=== PATIENT | male | born 1985 | race African-American/Black ===

== ENCOUNTER 2021-12-27 13:59 | Emergency (ER) | payer OTHER ==
[2021-12-27 14:11] VITALS: BP 169/101
[2021-12-27 14:22] LABS: BILIRUBIN,URINE NEGATIVE (NEGATIVE); GLUCOSE, URINE (UA) NEGATIVE (NEGATIVE); KETONES,URINE (UA) NEGATIVE (NEGATIVE); LEUKOCYTE ESTERASE, URINE NEGATIVE (NEGATIVE); NITRITE,URINE NEGATIVE (NEGATIVE); OCCULT BLOOD,URINE NEGATIVE (NEGATIVE); PROTEIN,URINE NEGATIVE (NEGATIVE); UROBILINOGEN,URINE 1 (NORMAL) E.U./dL (NORMAL)
--- NOTE | 2021-12-27 14:22 | ED Physician Documentation ---
History of Present Illness - Stated complaint Stated Complaint: MALE - Chief complaint Chief Complaint: UTI - Additonal information Additional information: 36-year-old male presents emergency department for evaluation of dysuria. Symptoms began yesterday evening. 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 He did have sexual intercourse with his partner. He denies that she has any symptoms. He is circumcised. He did not use a condom. He has no history of this in the past. He has no penile discharge. He has some mild pain at the tip of the urethra. No scrotum or testicular tenderness/swelling. Review of Systems Constitutional: denies: Fever, Chills Eyes: reports: Reviewed and negative Nose: reports: Reviewed and negative Throat: reports: Reviewed and negative Cardiac: reports: Reviewed and negative Respiratory: reports: Reviewed and negative GI: reports: Reviewed and negative : reports: Dysuria. denies: Discharge, Testicular pain, Testicular mass Skin: reports: Reviewed and negative Musculoskeletal: reports: Reviewed and negative PD PAST MEDICAL HISTORY - Past Medical History Past Medical History: No Cardiovascular: None Respiratory: None Neuro: None Endocrine/Autoimmune: None GI: None : None HEENT: None Psych: None Musculoskeletal: None Derm: None - Past Surgical History Past Surgical History: No - Present Medications Home Medications: Ambulatory Orders Medication Instructions Recorded Confirmed Doxycycline Hyclate 100 mg PO BID #14 cap 12/27/21 - Allergies Allergies/Adverse Reactions: Allergies Allergy/AdvReac Type Severity Reaction Status Date / Time No Known Drug Allergies Allergy Verified 12/27/21 14:11 - Social History Does the pt smoke?: No Smoking Status: Never smoker Does the pt drink ETOH?: Yes Does the pt have substance abuse?: No - Immunizations Immunizations are current?: Yes PD ED PE NORMAL - General General: Alert and oriented X 3, No acute distress - Respiratory Respiratory: Clear bilaterally - Male Male : Other (Normal cremasteric bilaterally. No scrotal or testicular tenderness bilaterally. No suprapubic tenderness. No penile discharge. Mild pain at the tip of the urethra.) Results - Vitals Vitals: Vital Signs - 24 hr 12/27/21 14:08 Temperature 35.6 C L Heart Rate 53 L Respiratory 16 Rate Blood Pressure 169/101 H O2 Saturation 99 Oxygen O2 Source Room air - Labs Labs: Laboratory Tests 12/27/21 14:15 Urine Color YELLOW Urine Clarity CLEAR Urine pH 7.0 Ur Specific [place] 1.020 Urine Protein NEGATIVE Urine Glucose (UA) NEGATIVE Urine Ketones NEGATIVE Urine Occult Blood NEGATIVE Urine Nitrite NEGATIVE Urine Bilirubin NEGATIVE Urine Urobilinogen 1 (NORMAL) Ur Leukocyte Esterase NEGATIVE Ur Microscopic Review NOT INDICATED Urine Culture Comments NOT INDICATED PD MEDICAL DECISION MAKING - ED course Complexity details: reviewed results, considered differential, d/w patient ED course: 36-year-old male presents emergency department for evaluation of acute onset dysuria that began about 24 hours ago. This followed recent sexual intercourse after he returned from leave with his partner. He has no discharge. No history of similar. His exam is relatively benign sparing mild tenderness at the urethra without discharge. Screening UA is unremarkable for markers of infection. I discussed with the patient that his symptoms are highly suggestive of sexual transmitted infection likely chlamydia. We have elected empiric treatment today to include 500 mg of ceftriaxone as well as a prescription for 1 week of doxycycline. GC results are pending via urine. Patient will be notified only if positive. We discussed that he should discuss this ED visit with his partner. She should be tested and treated as well before they reengage in intercourse. We will follow-up with [facility] if symptoms fail to resolve. We also discussed that the emergency department typically only test for chlamydia and gonorrhea. More extensive sexually transmitted infection testing such as syphilis syphilis or HIV is indicated through his PCP Departure - Departure Disposition: 01 Home, Self Care Clinical Impression: Dysuria Condition: Stable Record reviewed to determine appropriate education?: Yes Instructions: STDs Prescriptions: Doxycycline Hyclate 100 mg PO BID #14 cap Comments: Anthony you came to the emergency department today because it mares when you pee. Your urine sample shows no markers of infection. As we discussed at the bedside, your history is likely suggestive of sexually transmitted infection, likely chlamydia. Here in the emergency department we have given you an injection of an antibiotic called ceftriaxone as well as sent a prescription for a medication called doxycycline to the pharmacy. You should take this twice daily for the next week. We are screening your urine for chlamydia and gonorrhea, the most common sexually transmitted infections. We will notify you only if the test is positive in the next 3 to 4 days. You must discuss this ED visit with your partner. She should be screened and treated for sexually transmitted infection before you reengage in intercourse. You both should abstain from sex for at least 7 to 14 days after the course of antibiotics is completed. If at any point you feel that your symptoms or not improving, you develop fevers, have abdominal pain testicular pain or uncontrolled vomiting then please return to the emergency department. The emergency department typically only screens for chlamydia and gonorrhea. More extensive STD testing such as for HIV or syphilis should be completed through your primary care provider/[facility] or [facility] Your prescription has been sent electronically to the [facility] in [place].
[2021-12-27 14:25] LABS: CLARITY,URINE CLEAR (CLEAR)
[2021-12-27] MEDS ORDERED: cefTRIAXone 500 MG VIAL IM STA (14:42)
[2021-12-27] MEDS ORDERED: DOXYCYCLINE 100 MG TABLET PO STA (14:42)
[2021-12-27] MEDS ORDERED: LIDOCAINE 1% 2 ML VIAL MC ONE (14:42)
[2021-12-27 19:25] LABS: CHLAMYDIA TRACHOMATIS DNA NEGATIVE (NEGATIVE); NEISSERIA GONORRHOEAE DNA NEGATIVE (NEGATIVE)
== END 2021-12-27 15:21 | disposition home or self-care (01) ==
LOC: ED 13:59
DX: R30.0 Dysuria (principal)
CPT/HCPCS: 81003; 87491; 87591; 96372; 99282; 99283; A9270; 81001; 87086; 87661